=== PATIENT | female | born 1940 | race Caucasian/White ===

== ENCOUNTER 2021-07-20 12:49 | Emergency (ER) | payer MEDICARE ==
--- NOTE | 2021-07-20 13:58 | ERPHSYRPT ---
- History of Present Illness Time Seen by Provider: 07/20/21 12:52 Source: patient Exam Limitations: no limitations (Without yes) Patient Subjective Stated Complaint: " I had a nuclear medicine test done on and I had a reaction to that. I felt like my circulation was being cut off. Then on Sunday, I had a lot of swelling in my face, I looked like I had a stroke. I now have this sore on my face. I went to a follow up with my business intelligence engineer today and he told me to get to the ER because of my face." Triage Nursing Assessment: Pt presents to ER with complaints of red and painful sore to right side of face just beneath the nose. Pt is alert and oriented x 3. Other surrounding skin is pink, warm, and dry. Pt respiraitons are easy and unlabored at this time. Pt denies nausea and vomiting. States that she had some diarrhea this morning. Rating pain in face 6/10 scale. Area appears red, swollen, and painful. Pt states that there has been some blood and puss draining from site. Physician History: 81-year-old female with multiple medical problems presented in the ER with chief complaint of right nasolabial area swelling with some discharge. Patient reports she had nuclear stress test done 6 days ago and next morning she woke up with swelling of right side of face which improved and later on had some pimple on the right nasolabial area which is causing moderate intensity sharp pain and noticed some discharge this morning. Patient was to see her business intelligence engineer and is sent in here for further evaluation. Denies any fever or chills. No dizziness or lightheadedness. No visual disturbance. Timing/Duration: day(s) (5), gradual onset, worse Quality: burning, painful Severity: moderate Location: face Possible Causes: no cause identified Associated Symptoms: rash, swelling/mass/lumps Allergies/Adverse Reactions: Calcium Channel Blocking Agents-Dih Allergy (Verified 07/20/21 13:27) diltiazem Allergy (Verified 07/20/21 13:27) Penicillins Allergy (Verified 07/20/21 13:18) Sulfa (Sulfonamide Antibiotics) Allergy (Verified 07/20/21 13:18) Home Medications: Amlodipine Besylate 5 mg [Norvasc 5 mg] 5 mg PO DAILY 07/20/21 [History] Clopidogrel Bisulfate 75 mg [PLAVIX 75 MG Tablet] 75 mg PO DAILY 07/20/21 [History] Furosemide 40 mg [Lasix 40 MG] 40 mg PO DAILY 07/20/21 [History] LORazepam [Lorazepam] 1 tab PO BID PRN PRN 07/20/21 [History] Nitroglycerin 0.4 mg Tablet [Nitrostat 0.4 MG Tablet] 1 tab SL Q5MIN PRN MR X 3 PRN 07/20/21 [History] Pantoprazole 20 mg [Protonix 20MG Tablet] 20 mg PO DAILY 07/20/21 [History] Simvastatin 10 mg [Zocor 10MG] 10 mg PO HS 07/20/21 [History] Spironolactone 25 mg [Aldactone 25 MG] 50 mg PO BID 07/20/21 [History] Hx Tetanus, Diphtheria Vaccination/Date Given: Yes Hx Influenza Vaccination/Date Given: No Hx Pneumococcal Vaccination/Date Given: No Immunizations Up to Date: No Travel Risk - International Travel Have you traveled outside of the country in past 3 weeks: No - Coronavirus Screening Are you exhibiting any of the following symptoms?: No Close contact with a COVID-19 positive Pt in past 14-21 Days: No - Vaccine Status Have you recieved a Covid-19 vaccination: No - Review of Systems Constitutional: No Symptoms Eyes: No Symptoms Ears, Nose, & Throat: Nose Pain, Nose Congestion, Sinus Drainage Respiratory: No Symptoms Cardiac: No Symptoms Abdominal/Gastrointestinal: No Symptoms Genitourinary Symptoms: No Symptoms Psychological: No Symptoms Endocrine: No Symptoms - Past Medical History Pertinent Past Medical History: Yes Cardiac History: Coronary Artery Disease, Hypertension GI Medical History: Irritable Bowel - Past Surgical History Past Surgical History: Yes Cardiac: CABG, Cardiac Stent Gastrointestinal: Appendectomy Female Surgical History: Hysterectomy Other Surgical History: carotid sx - Social History Smoking Status: Never smoker Exposure to second hand smoke: No Patient Lives Alone: No - Nursing Vital Signs Nursing Vital Signs: Initial Vital Signs Temperature 97.1 F 07/20/21 13:04 Pulse Rate 79 07/20/21 13:04 Respiratory Rate 18 07/20/21 13:04 Blood Pressure 162/94 07/20/21 13:04 O2 Sat by Pulse Oximetry 95 07/20/21 13:04 Pain Scale Pain Intensity 5 - Physical Exam General Appearance: no apparent distress, alert Eye Exam: PERRL/EOMI, eyes nml inspection Ears, Nose, Throat Exam: other (Swollen right nasal labial area with minimal discharge and partly scabbed. Swelling is extending to right nasal fold. Tender to touch. Minimal erythema of cheek. Intact range of motion of right eyeball.) Respiratory Exam: normal breath sounds, lungs clear Cardiovascular Exam: regular rate/rhythm, normal heart sounds Extremity Exam: normal inspection Neurologic Exam: alert, oriented x 3, cooperative, debarker operator II-XII nml as tested, normal mood/affect, sensation nml, motor deficits SpO2 Interpretation: normal SpO2: 95 O2 Delivery: Room Air Ordered Tests: Medication Summary Discontinued Medications Generic Name Dose Route Start Last Admin Trade Name Freq PRN Reason Stop Dose Admin Clindamycin Phosphate 600 mg 07/20/21 13:50 07/20/21 14:05 Clindamycin Phosphate 600 Mg/4 Ml Vial IV 07/20/21 13:51 Not Given ONCE STA Clindamycin Phosphate 600 mg 07/20/21 14:06 Clindamycin Phosphate 600 Mg/4 Ml Vial IM 07/20/21 14:07 STAT ONE Clindamycin Phosphate Confirm 07/20/21 14:06 Clindamycin Phosphate 600 Mg/4 Ml Vial Administered 07/20/21 14:07 Dose 600 mg .ROUTE .STK-MED ONE - Progress Progress: improved Progress Note: 07/20/21 14:14 She is given lidocaine injection blocked locally. No pus drainable. I have started her on clindamycin. Nonfocal neuro exam. Outpatient follow-up with primary care recommended. Discussed signs symptoms of worsening needing return to ER which she seems understanding. Counseled pt/family regarding: diagnosis, need for follow-up - Departure Departure Disposition: Home Clinical Impression: Facial cellulitis Condition: Stable Critical Care Time: No Referrals: SHAZIA FRAGA MD [NON-STAFF PHY W/O PRIVILEGES] - Follow up/PCP as directed (Tomorrow for reevaluation) Instructions: MRSA (DC) Additional Instructions: Follow-up with primary care for reevaluation in 1-2 days. Take Tylenol as needed for pain. Return to ER for increasing swelling, pain, discharge or if develop fever chills, difficulty movements of eyeball. Prescriptions: clindamycin HCL [Clindamycin HCl] 300 mg PO QID 10 Days #40 cap
[2021-07-20] MEDS: Cleocin Phosphate IV 600 MG/4 ML IV STA (14:05)
[2021-07-20] MEDS ORDERED: Cleocin Phosphate IV 600 MG/4 ML ONE (14:06)
[2021-07-20] MEDS: Cleocin Phosphate IV 600 MG/4 ML IM ONE (14:13)
[2021-07-20 14:46] VITALS: BP 209/90; PULSE 81; O2SAT 96
== END 2021-07-20 14:46 | disposition home or self-care (01) ==
LOC: ED 12:49
DX: J34.0 Abscess, furuncle and carbuncle of nose (principal); I25.10 Atherosclerotic heart disease of native coronary artery without angina pectoris; I10 Essential (primary) hypertension; Z79.01 Long term (current) use of anticoagulants; Z79.899 Other long term (current) drug therapy
CPT/HCPCS: 96372; 99283